=== PATIENT | male | born 1960 | race Caucasian/White ===

== ENCOUNTER 2024-11-14 08:04 | Outpatient (REF) | payer MEDICARE, SELFPAY ==
[2024-11-14 08:37] LABS: MANUAL DIFF FLAG NO
[2024-11-14 09:04] LABS: Basophils Percent Auto 0.5 % (0-2); Eosinophils Absolute Auto 0.2 X10*3/uL (0.0-0.4); Eosinophils Percent Auto 1.8 % (0-4); Hematocrit 44.5 % (42.0-52.0); Hemoglobin 15.3 g/dl (14.0-18.0); Imm Gran Abs Auto 0.02 X10*3/uL (0.00-0.03); Imm Gran Pct Auto 0.2 % (0.0-0.4); Lymphocytes Absolute Auto 3.6 X10*3/uL (1.2-4.9); Lymphocytes Percent Auto 42.5 % (20-40); Mean Corpuscular HGB Conc 34.4 g/dl (31.0-36.0); Mean Corpuscular Hemoglobin 29.4 pg (27.0-33.0); Mean Corpuscular Volume 85.4 fL (80.0-98.0); Mean Platelet Volume 10.1 fL (9.4-12.4); Monocytes Absolute Auto 1.1 X10*3/uL (0.1-1.2); Monocytes Percent Auto 12.8 % (2-11); Neutrophils Absolute Auto 3.6 x10*3/uL (2.0-8.3); Neutrophils Percent Auto 42.2 % (45-73); Platelet Count 183 X10*3/uL (160-400); Red Blood Count 5.21 X10*6/uL (4.60-5.80); Red Cell Distribution Width 13.5 % (11.0-16.0); White Blood Count 8.5 X10*3/uL (4.8-10.8)
[2024-11-14 09:35] LABS: Alanine Aminotransferase 49 U/L (0-40); Albumin Level 4.2 g/dL (3.5-5.0); Alkaline Phosphatase 106 U/L (39-117); Anion Gap 8 (12-20); Aspartate Amino Transferase 41 U/L (5-37); Bilirubin Total 0.9 mg/dL (0.0-1.0); Blood Urea Nitrogen 16 mg/dL (9-16); Calcium 9.7 mg/dL (8.4-10.2); Carbon Dioxide 27 mmol/L (22-29); Chloride 107 mmol/L (96-108); Estimated Glomerular Filt Rate > 60; Glucose Random 110 mg/dL (60-115); Lipase 14 U/L (8-78); Potassium 4.3 mmol/L (3.3-5.1); Sodium 138 mmol/L (135-145); Total Protein 7.8 g/dL (6.5-8.0)
[2024-11-14 09:45] LABS: PSA,Total (Free>4and<10) 1.28 ng/mL (0.00-4.00)
== END 2024-11-14 08:05 | disposition home or self-care (01) ==
LOC: HO.LAB 08:04
PROVIDERS: PCP Internal Medicine; Visit Provider Internal Medicine
DX: N40.1 Benign prostatic hyperplasia with lower urinary tract symptoms (principal); R10.30 Lower abdominal pain, unspecified; Z12.5 Encounter for screening for malignant neoplasm of prostate
CPT/HCPCS: 36415; 80053; 83690; 84153; 85025; 86140

== ENCOUNTER 2025-04-01 10:44 | Outpatient (REF) | payer MEDICARE, SELFPAY ==
[2025-04-01 11:05] LABS: Hematocrit 46.2 % (42.0-52.0); Hemoglobin 15.6 g/dl (14.0-18.0); Mean Corpuscular HGB Conc 33.8 g/dl (31.0-36.0); Mean Corpuscular Hemoglobin 29.2 pg (27.0-33.0); Mean Corpuscular Volume 86.5 fL (80.0-98.0); Mean Platelet Volume 10.1 fL (9.4-12.4); Platelet Count 166 X10*3/uL (160-400); Red Blood Count 5.34 X10*6/uL (4.60-5.80); Red Cell Distribution Width 13.2 % (11.0-16.0); White Blood Count 8.4 X10*3/uL (4.8-10.8)
--- OUTSIDE RECORDS SUMMARY | 2025-04-01 11:50 | XMS_ITS | Clinical Summary ---
Author Organization [facility] Address [address] [place] [address] Phone Care Team Providers Care Family Day Care Provider Name Role Phone Cornelio Schmitt MD Primary Care Provider +1- [phone] Allergies No known active allergies Social History Tobacco Use Types Packs/Day Years Used Date Smoking Tobacco: Never Assessed Sex and Gender Information Value Date Recorded Sex Assigned at Male 11/14/2024 1:17 PM EST Legal Sex Male 9:50 PM EST Gender Identity Male 11/14/2024 1:17 PM EST Sexual Orientation Straight 11/14/2024 1: 17 PM EST Plan of Treatment Health Maintenance Due Date Last Done Comments Zoster Vaccines (1 of 2) 2008 Pneumococcal Vaccine: 50+ Years (2 of 2 - PPSV23) 07/17/2011 07/17/2010, 07/11/2009 DTaP,Tdap,and Td Vaccines (4 - Td or Tdap) 07/17/2020 07/17/2010, 09/19/2009, 07/11/2009 Cholesterol Screening (Lipid Panel) 10/13/2022 Colorectal Cancer Screening: Colonoscopy 10/13/2022 Depression Screening 10/13/2022 Hepatitis C Screening 10/13/2022 Medicare Annual Wellness Visit 10/13/2022 Social Influencers of Health Screening 10/13/2022 Falls Risk Assessment 2023 COVID-19 Vaccine ( season) 2024 Influenza Vaccine (Season Ended) 2025 09/10/2020, 09/14/2019, 09/02/2018, Additional history exists RSV Immunization Adult Patients (1 - 1-dose 75+ series) 2033 Meningococcal ACWY Vaccine Aged Out 07/11/2009 N o longer eligible based on patient's age to complete this topic HIB Vaccines Aged Out 07/17/2010, 09/01, 07/11/2009 No longer eligible based on patient's age to complete this topic MMR Vaccines Aged Out 07/17/2010 No longer eligi ble based on patient's age to complete this topic HPV Vaccines Aged Out No longer eligi ble based on patient's age to complete this topic Hepatitis A Vaccines Aged Out No long er eligible based on patient's age to complete this topic Hepatitis B Vaccines Aged Out No long er eligible based on patient's age to complete this topic IPV Vaccines Aged Out No longer eligi ble based on patient's age to complete this topic Meningococcal B Vaccine Aged Out No l onger eligible based on patient's age to complete this topic RSV Immunization Patients Under 20 months Aged Out No longer eligible based on patient's age to complete this topic Varicella Vaccines Aged Out No longer eligible based on patient's age to complete this topic Insurance MEDICARE [facility] Care Teams Family Day Care Provider Relationship Specialty Start Date End Date Cornelio Schmitt MD [address] [place] [phone] PCP - General Internal Medicine 11/14/24
[2025-04-01 11:56] LABS: Alanine Aminotransferase 39 U/L (0-40); Albumin Level 4.3 g/dL (3.5-5.0); Alkaline Phosphatase 114 U/L (39-117); Anion Gap 8 (12-20); Aspartate Amino Transferase 36 U/L (5-37); Bilirubin Total 0.8 mg/dL (0.0-1.0); Blood Urea Nitrogen 17 mg/dL (9-16); Calcium 9.7 mg/dL (8.4-10.2); Carbon Dioxide 29 mmol/L (22-29); Chloride 105 mmol/L (96-108); Cholesterol 118 mg/dL (<200); Estimated Glomerular Filt Rate > 60; Glucose Random 110 mg/dL (60-115); HDL Cholesterol 32 mg/dL (>40); LDL Cholesterol Calculated 59 mg/dL (<100); Potassium 4.3 mmol/L (3.3-5.1); Sodium 138 mmol/L (135-145); Total Protein 7.6 g/dL (6.5-8.0); Triglycerides 135 mg/dL (<150)
[2025-04-02 13:43] LABS: Free Prostate Spec Ag 0.5 ng/mL; Percent Free Prostate Spec Ag 45 % (calc) (>25); Prostate Specific Ag Total 1.1 ng/mL (< OR = 4.0)
== END 2025-04-01 10:45 | disposition home or self-care (01) ==
LOC: HO.LAB 10:44
PROVIDERS: PCP Internal Medicine; Visit Provider Internal Medicine
DX: I25.10 Atherosclerotic heart disease of native coronary artery without angina pectoris (principal)
CPT/HCPCS: 36415; 80053; 80061; 84154; 85027

== ENCOUNTER 2025-08-20 08:30 | Outpatient (REF) | payer MEDICARE, SELFPAY ==
--- NOTE | ~2025-08-20 | XR_ITS ---
EXAMINATION: XR ANKLE, RIGHT CLINICAL INFORMATION: M25.579 - Pain in unspecified ankle and joints of unspecified foot COMPARISON: August 11, 2025. TECHNIQUE: AP, lateral, and mortise views of the right ankle. FINDINGS: There is minimal callus formation in the comminuted fracture distal diaphysis/metaphysis, right femur and lateral malleolus. Mild soft tissue edema/contusion, lateral malleolus. No subcutaneous emphysema. Medial malleolus is intact. XR/XR ankle RT min 3V IMPRESSION: No gross healing, comminuted fracture lateral malleolus and distal metaphysis/diaphysis right fibula. Electronically signed by: Jacky Moctezuma MD 08/20/2025 10:28 AM EDT
== END 2025-08-20 08:31 | disposition home or self-care (01) ==
LOC: HO.HOSX 08:30
PROVIDERS: Visit Provider Physician Assistant
DX: S82.831D Other fracture of upper and lower end of right fibula, subsequent encounter for closed fracture with routine healing (principal); M25.571 Pain in right ankle and joints of right foot; W10.9XXD Fall (on) (from) unspecified stairs and steps, subsequent encounter
CPT/HCPCS: 73610; 99202

== ENCOUNTER 2025-08-20 10:12 | Outpatient (AMB) | payer MEDICARE, SELFPAY ==
--- NOTE | 2025-08-20 10:28 | MHC.OFFVIS ---
Vital Signs 08/20/25 10:34 Height 6 ft Weight 258 lb BMI 35.0 Handedness Right Intake Visit Reasons: RT non displaced fibula fracture DOI 08/11/25 Intake Note: Riky is a 64 year old male who presents today for a evaluation of his right ankle fracture, DOI 08/12/25. Patient reports he was coming downt the stairs and he fell from the last step. Patient notices his pain is worse with wearing his boot. Patient has mild pain without the boot and icing and taking Alive. Allergies clindamycin Allergy (Verified 08/20/25 10:32) Rash sulfamethoxazole (From Bactrim) Allergy (Verified 08/20/25 10:32) Rash trimethoprim (From Bactrim) Allergy (Verified 08/20/25 10:32) Rash HPI HPI RT non displaced fibula fracture DOI 08/11/25: Details: Mr. Coronado is a 64-year-old male who presents to the office today for evaluation of a right ankle injury that he sustained on 08/11/2025. He states that he was walking down a set of stairs and missed the last step. He sustained an inversion injury and fell pain. He was seen at an urgent care and x-rays were obtained. He was instructed he had a distal fibular fracture was placed into a tall walking boot. He was then referred to Orthopedics outpatient for further evaluation and treatment. [facility] Social History (Updated 08/20/25 @ 10:34 by Valentin Bello) Alcohol intake: never Patient Tobacco Use Status: Never used Tobacco Current occupational status: retired Current occupation: right hand dominant Review of Systems Const All systems reviewed & are unremarkable except as noted in HPI and below Physical Exam Vital Signs: BMI result Body Mass Index 35.0 Const General: cooperative, healthy appearing and no acute distress Resp Effort & Inspection: normal respiratory effort and able to speak in complete sentences Extrem Other: Right ankle: Mild to moderate edema along the lateral malleolus accompanied by tenderness to palpation. Patient is able to demonstrate dorsiflexion, plantar flexion, pronation and supination with mild discomfort.. Negative anterior drawer. Sensation intact. Pedal Pulse intact. Psych Appearance: grossly normal Mental Status: mental status grossly normal Attitude: cooperative Office Procedures AMB Fracture Care Fracture Billing Code: Fracture Billing Code Assessment & Plan Assessment & Plan (1) Closed fracture of right distal fibula: Code(s): S82.831A - Other fracture of upper and lower end of right fibula, initial encounter for closed fracture Category: Medical Plan Mr. Coronado is a 64-year-old male who presents to the office today for evaluation of a right ankle injury that he sustained on 08/11/2025. He states that he was walking down a set of stairs and missed the last step. He sustained an inversion injury and fell pain. He was seen at an urgent care and x-rays were obtained. He was instructed he had a distal fibular fracture was placed into a tall walking boot. He was then referred to Orthopedics outpatient for further evaluation and treatment. While in the office today repeat x-rays were obtained as the patient has been weight-bearing in the tall walking boot. X-rays in the office today redemonstrate distal fibular fracture with no disruption of the ankle mortise. Patient is tall walking boot that was provided to him by the urgent care is ill fitting and too small. This is causing pain for him along the fracture site. He was given a new tall walking boot fit appropriately while in the office today. He will continue weight-bearing as tolerated. I also placed an order for physical therapy in which he will attend an outside facility closer to home for gait training in the boot and range of motion. He will remain in the boot until I see him back in 4 weeks with repeat x-rays, sooner if needed. Of note, the patient is quite active with tennis and pickleball he will likely require a lace-up ankle brace at the next appointment. Orders: Orders PT Evaluation and Treatment Today S82.831A - Other fracture of upper and lower end of right fibula, initial encounter for closed fracture XR ankle RT min 3V Today M25.579 - Pain in unspecified ankle and joints of unspecified foot Coding Level of Care Code New Pt Level 4 (92024) Diagnoses Closed fracture of right distal fibula S82.831A CPT Codes Fracture Care - Fracture Billing Code: Fracture Billing Code ([id number])
[2025-08-20 10:34] VITALS: BMI 35.0
--- OUTSIDE RECORDS SUMMARY | 2025-08-20 12:00 | XMS_ITS | Patient Health Record ---
Author Organization [facility] Dianayaya Gregorioley Address [address] [facility] [place] [address] Care Team Providers Care Abrasive Water Jet Cutter Operator Name Role Phone Cornelio Schmitt MD Primary Care Provider Oscar Chaparro Unavailable [phone] Allergies Allergen (clinical drug ingredient) Drug/Non Drug Allergy documented on EMR Reaction Allergy Type Onset Date Status sulfamethoxazole / trimethoprim Bactrim Unknown Drug Allergy Active clindamycin Clindamycin HCl Unknown Drug Allergy Active Reason For Referral No Information Medications Medication SIG (Take, Route, Frequency, Duration) Notes Start Date End Date Status Lisinopril 5 MG as directed Orally O nce a day Active Vitamin D Active Ciclopirox Olamine 0.77 % 1 application to affected area Externally Twice a day to effected areas on feet; Duration: 30 days 05/28/2025 Active Atorvastatin Calcium 40 MG 1 tablet Oral ly Once a day Active Immunizations Vaccine Route Administration Date Status Comme nts Influenza Unknown 10/13/2021 Refused Influenza Unknown 05/28/2025 Refused COVID-19 Yony & Yony/Lis Unknown 10/13/2021 R efused Social History Tobacco Use: Social History Observation Description Date Details (start date - stop date) Never Smoker NA - NA Tobacco use other than smoking: Question Answer Notes Are you an other tobacco user? No Tobacco Control (Standard) Question Answer Notes Tobacco use: Nonsmoker Additional Findings: Tobacco non-user Current no nsmoker AUDIT-C (Standard) Question Answer Notes Did you have a drink containing alcohol in the p ast year? No Points 0 Interpretation Negative Problems Problem Type SNOMED Code ICD Code Onset Dates Problem Status W/U Status Risk Notes Problem Onychomycosis (907516873) Onychomycosis (B35.1) Active confirmed Vital Signs Blood pressure diastolic 65 mm Hg 05/28/2025 Height 3ej31vv in 05/28/2025 Blood pressure systolic 128 mm Hg 05/28/2025 Weight 260 lbs 05/28/2025 BMI 36.26 kg/m2 05/28/2025 Procedures Procedure Date Ordered Date Performed Result Body Sit e 83048-MPMPPUF NAIL, 6 OR MORE 11/16/2024 N/A 82798-CRFLDHQ NAIL, 6 OR MORE 02/22/2025 N/A 85808-[id number] NAIL, 6 OR MORE 05/28/2025 N/A Encounters Encounter Location Date Provider Diagnosis [address] [address] 11/16/2024 Oscar Shubham Pain in right toe(s) M79.674 ; Onychomycosis B35.1 and Pain in left toe(s) M79.[address] [address] 02/22/2025 Oscar Shubham Pain in right toe(s) M79.674 ; Onychomycosis B35.1 and Pain in left toe(s) M79.[address] [address] 05/28/2025 Oscar Shubham Pain in right toe(s) M79.674 ; Onychomycosis B35.1 ; Pain in left toe(s) M79.675 and Tinea pedis of both feet B35.3 Assessments Encounter Date Diagnosis (ICD Code) Assessment Notes Treatment Notes Treatment Clinical Notes Section Notes 11/16/2024 Pain in right toe(s) (ICD-10 - M79.674) 02/22/2025 Pain in right toe(s) (ICD-10 - M79.674) 05/28/2025 Pain in right toe(s) (ICD-10 - M79.674) 05/28/2025 Onychomycosis (ICD-10 - B35.1) 02/22/2025 Onychomycosis (ICD-10 - B35.1) 11/16/2024 Onychomycosis (ICD-10 - B35.1) 02/22/2025 Pain in left toe(s) (ICD-10 - M79.675) 11/16/2024 Pain in left toe(s) (ICD-10 - M79.675) 05/28/2025 Pain in left toe(s) (ICD-10 - M79.675) 05/28/2025 Tinea pedis of both feet (ICD-10 - B35.3) Patient Educated with: ATHELETE .pdf (ATHELETE .pdf) Plan Of Treatment Pending Test Test Name Order Date [id number] NAIL, 6 OR MORE 11/01/2023 [id number] NAIL, 6 OR MORE 02/10/2024 [id number] NAIL, 6 OR MORE 05/11/2024 [id number] NAIL, 6 OR MORE 08/17/2024 [id number] NAIL, 6 OR MORE 11/16/2024 [id number] NAIL, 6 OR MORE 02/22/2025 [id number] NAIL, 6 OR MORE 05/28/2025 [id number] Plate 08/17/2024 Next Appt Details Provider Name:Oscar Jalloh , 09/13/2025 08:45:00 AM, [address] [facility], [place], [address], Insurance Providers Payer Name Payer Address Payer Phone Subscriber Number Group Number Insured Name Patient Relationship to Insured Coverage Start Date Coverage End Date Medicare National Govt S[employer] [address] [place] [address] [id number] Riky Coronado Self - patient is the insured [employer] [address] [place] [address] [id number] Coronado Riky Self - patient is the insured Medical (General) History Medical History History ICD Code Arthritis Cancer - Lymphoma High blood pressure Neuropathy from Chemo Chicken pox Surgical History Surgery Date(Month/Year) cancer surgery- Stem cell transplant colonoscopy
== END 2025-08-20 11:10 | disposition home or self-care (01) ==
LOC: HO.HOS 10:13
PROVIDERS: PCP Internal Medicine; Visit Provider Physician Assistant
DX: S82.831A Other fracture of upper and lower end of right fibula, initial encounter for closed fracture (principal)
CPT/HCPCS: 99203

== ENCOUNTER → 2025-08-20 10:16 | Outpatient (BNV) | payer MEDICARE, SELFPAY | PROVIDERS: Visit Provider Radiology Diagnostic Radiology | DX: S82.61XA Displaced fracture of lateral malleolus of right fibula, initial encounter for closed fracture (principal); S82.831A Other fracture of upper and lower end of right fibula, initial encounter for closed fracture | CPT/HCPCS: 73610 ==

== ENCOUNTER 2025-09-19 09:12 | Outpatient (REF) | payer MEDICARE, SELFPAY ==
--- OUTSIDE RECORDS SUMMARY | 2025-09-13 03:45 | XMS_ITS ---
Author Organization [facility] marie Slater Address [address] [place] [address] Care Team Providers Care Landscape Artist Name Role Phone Oskar BLOOD, Cornelio Primary Care Provider UnaOscar Betancourt Unavailable [phone] Encounters Encounter Location Date Provider Diagnosis [address] [address] 09/13/2025 Oscar Jalloh Plan Of Treatment Next Appt Details Provider Name:Oscar Jalloh , 12/13/2025 08:45:00 AM, [address] [place] [address], [phone], Progress Notes * Riky SALES PDOB:[birth year] (64 yo M)Acc No.[id number]:09/13/2025 Progress Note Patient: Riky BENNETT Provider: Jb Jalloh DPM :1960 A ge:64 Y S ex:Male Date:09/13/2025 Address:[address] [place] [address] Pcp:Cornelio Schmitt MD Subjective: * Chief Complaints: * * Medical History: Objective: * Vitals: Assessment: Plan: * Treatment: * Images: * The named appointment provid er may or may not be the originator of this progress note, and it is not deemed complete until electronically signed by the appointment provider. Sign off status: Pending * Provider: Jb Jalloh DPM Date: 11/13/2024 Generated for Jose Alberto hansen/Harini/Regine on: 11/20/2024 09:35 AM EST
--- NOTE | ~2025-09-19 | XR_ITS ---
EXAMINATION: XR ANKLE, RIGHT CLINICAL INFORMATION: M25.579 - Pain in unspecified ankle and joints of unspecified foot COMPARISON: August 20, 2025 TECHNIQUE: AP, lateral, and mortise views of the right ankle. FINDINGS: Persistent 2 mm gap between fragments of the fracture distal diaphysis metaphysis of the fibula without overt callus formation or periosteal bone formation. XR/XR ankle RT min 3V IMPRESSION: Non healing fracture Electronically signed by: Jacky Moctezuma MD 09/19/2025 01:16 PM [facility]
--- OUTSIDE RECORDS SUMMARY | 2025-09-20 09:35 | XMS_ITS | Patient Health Record ---
Author Organization [facility] Dianayaya Gregorioley Address [address] [place] [address] Care Team Providers Care Rod Welder Name Role Phone Cornelio Schmitt MD Primary Care Provider Oscar Chaparro Unavailable [phone] Allergies Allergen (clinical drug ingredient) Drug/Non Drug [...] Status W/U Status Risk Notes Problem Onychomycosis (379315151) Onychomycosis (B35.1) Active confirmed Vital Signs Blood pressure diastolic 65 mm Hg 05/28/2025 Height 0oy48ah in 05/28/2025 Blood pressure systolic 128 mm Hg 05/28/2025 Weight 260 lbs 05/28/2025 BMI 36.26 kg/m2 05/28/2025 Procedures Procedure Date Ordered Date Performed Result Body Sit e 80939-[id number] NAIL, 6 OR MORE 11/16/2024 N/A [id number] NAIL, 6 OR MORE 02/22/2025 N/A [id number] NAIL, 6 OR MORE 05/28/2025 N/A Encounters Encounter Location Date Provider Diagnosis [address] [address] 11/16/2024 Oscar Shubham Pain in right toe(s) M79.674 ; Onychomycosis B35.1 and Pain in left toe(s) M79.[address] [address] 02/22/2025 Oscar Shubham Pain in right toe(s) M79.674 ; Onychomycosis B35.1 and Pain in left toe(s) M79.[address] [address] 05/28/2025 Oscar Shubham Pain in right toe(s) M79.674 ; Onychomycosis B35.1 ; Pain in left toe(s) M79.675 and Tinea pedis of both feet B35.[address] [address] 09/02/2025 Oscar Shubham Assessments Encounter Date Diagnosis (ICD Code) Assessment [...] Treatment Pending Test Test Name Order Date [id number] NAIL, 6 OR MORE 11/01/2023 [id number] NAIL, 6 OR MORE 02/10/2024 [id number] NAIL, 6 OR MORE 05/11/2024 [id number] NAIL, 6 OR MORE 08/17/2024 [id number] NAIL, 6 OR MORE 11/16/2024 [id number] NAIL, 6 OR MORE 02/22/2025 [id number] NAIL, 6 OR MORE 05/28/2025 [id number] Plate 08/17/2024 Next Appt Details Provider Name:Oscar Priya Jalloh , 12/13/2025 08:45:00 AM, [address] [place], [address], Insurance Providers Payer Name Payer Address Payer Phone Subscriber Number Group Number Insured Name Patient Relationship to Insured Coverage Start Date Coverage End Date Medicare National Govt [facility] [address] [place] [address] [id number] Riky Coronado Self - patient is the insured [employer] [address] [place] [address] [id number] Riky Coronado Self - patient is the insured Medical (General) History Medical History History ICD Code Arthritis Cancer - Lymphoma High blood pressure Neuropathy from Chemo Chicken pox Surgical History Surgery Date(Month/Year) cancer surgery- Stem cell transplant colonoscopy
--- OUTSIDE RECORDS SUMMARY | 2025-09-20 09:35 | XMS_ITS | Clinical Summary ---
Author Organization [facility] Address [address] [place] [address] Phone Care Team Providers Care Milling Supervisor Name Role Phone Cornelio Schmitt MD Primary Care Provider +1- [phone] Allergies No known active allergies Social History [...] Health Maintenance Due Date Last Done Comments Colorectal Cancer Screening: Colonoscopy 1960 Zoster Vaccines (1 of 2) 2008 Pneumococcal Vaccine: 50+ Years (2 of 2 - PCV20 or PCV21) 07/17/2011 07/17/2010, 07/11/2009 DTaP,Tdap,and Td Vaccines (4 - Td or Tdap) 07/17/2020 07/17/2010, 09/19/2009, 07/11/2009 Cholesterol Screening (Lipid Panel) 10/13/2022 Hepatitis C Screening 10/13/2022 Medicare Annual Wellness Visit 10/13/2022 Social Influencers of Health Screening 10/13/2022 Falls Risk Assessment 2023 Depression Screening 10/31/2024 COVID-19 Vaccine ( season) 2025 Influenza Vaccine (#1) 2025 0, 09/14/2019, 09/02/2018, Additional history exists RSV Immunization [...] age to complete this topic Insurance MEDICARE [facility] Care Teams Milling Supervisor Relationship Specialty Start Date End Date Cornelio Schmitt MD [address] [place] [phone] PCP - General Internal Medicine 11/14/24
== END 2025-09-19 09:13 | disposition home or self-care (01) ==
LOC: HO.HOSX 09:12
PROVIDERS: Visit Provider Physician Assistant
DX: Z47.89 Encounter for other orthopedic aftercare (principal); S82.831D Other fracture of upper and lower end of right fibula, subsequent encounter for closed fracture with routine healing; X58.XXXD Exposure to other specified factors, subsequent encounter
CPT/HCPCS: 73610; 99212

== ENCOUNTER 2025-09-19 12:54 | Outpatient (AMB) | payer MEDICARE, SELFPAY ==
--- NOTE | 2025-09-19 13:20 | MHC.OFFVIS ---
Intake Visit Reasons: RT non displaced fibula fracture DOI 08/11/25 Intake Note: Riky is a 64 year old male who presents today for a follow up of his right distal fibula fracture, DOI 08/12/25. At his last visit patient was placed in a tall walking boot. Patient reports he is doing good. He has been working with physical therapy and performing his exercises at home as well. Allergies clindamycin Allergy (Verified 09/19/25 13:27) Rash sulfamethoxazole (From Bactrim) Allergy (Verified 09/19/25 13:27) Rash trimethoprim (From Bactrim) Allergy (Verified 09/19/25 13:27) Rash HPI HPI RT non displaced fibula fracture DOI 08/11/25: Details: Mr. Coronado is a 64-year-old male who presents to the office today for routine follow-up of a right distal fibular fracture that occurred on 08/11/2025. Patient denies any pain. He has been using a tall walking boot to assist with ambulation and attending physical therapy. Overall he is doing well and is wishing to discontinue the boot as it is causing some irritation on the anterior aspect of the ankle. [facility] Social History Alcohol intake: never Patient Tobacco Use Status: Never used Tobacco Current occupational status: retired Current occupation: right hand dominant Review of Systems Const All systems reviewed & are unremarkable except as noted in HPI and below Physical Exam Const General: cooperative, healthy appearing and no acute distress Resp Effort & Inspection: normal respiratory effort and able to speak in complete sentences Extrem Other: Right ankle: Mild edema located on the lateral malleolus. No tenderness to palpation over the lateral malleolus at the fracture site. Patient is able to demonstrate dorsiflexion, plantar flexion, pronation and supination with no discomfort or aqiwo-ar-blsowl limitations. Negative anterior drawer. Sensation intact. Pedal Pulse intact. Psych Appearance: grossly normal Mental Status: mental status grossly normal Attitude: cooperative Assessment & Plan Assessment & Plan (1) Closed fracture of right distal fibula: Code(s): S82.831A - Other fracture of upper and lower end of right fibula, initial encounter for closed fracture Category: Medical Plan Mr. Coronado is a 64-year-old male who presents to the office today for routine follow-up of a right distal fibular fracture that occurred on 08/11/2025. Patient denies any pain. He has been using a tall walking boot to assist with ambulation and attending physical therapy. Overall he is doing well and is wishing to discontinue the boot as it is causing some irritation on the anterior aspect of the ankle. While the office today, I have recommended that the patient discontinue the tall walking boot as it is causing irritation along the anterior aspect of the ankle and the patient does not have any tenderness to deep palpation over the fracture site of the distal fibula. He will continue working with physical therapy. I gave him a lace-up ankle brace in which he will wear during activities. He will transition to a supportive walking sneaker as well. He will follow up in 6 weeks, sooner if needed. X-rays of the right ankle which were obtained while in the office today and were reviewed by me, Sunni Montero PA-C, revealed routine healing right distal fibular fracture. Orders: Orders XR ankle RT min 3V Today M25.579 - Pain in unspecified ankle and joints of unspecified foot Coding Level of Care Code Est Pt Level 3 (34067) Diagnoses Closed fracture of right distal fibula S82.831A
== END 2025-09-19 13:52 | disposition home or self-care (01) ==
LOC: HO.HOS 12:55
PROVIDERS: Visit Provider Physician Assistant
DX: S82.831A Other fracture of upper and lower end of right fibula, initial encounter for closed fracture (principal)
CPT/HCPCS: 99213

== ENCOUNTER → 2025-09-19 13:03 | Outpatient (BNV) | payer MEDICARE, SELFPAY | PROVIDERS: Visit Provider Radiology Diagnostic Radiology | DX: S82.891G Other fracture of right lower leg, subsequent encounter for closed fracture with delayed healing (principal) | CPT/HCPCS: 73610 ==

== ENCOUNTER 2025-09-24 10:44 | Outpatient (REF) | payer MEDICARE, SELFPAY ==
--- OUTSIDE RECORDS SUMMARY | 2025-09-13 03:45 | XMS_ITS ---
Author Organization [facility] marie Loyalhanna Address [address] [place] [address] Care Team Providers Care Pipe Caulker Name Role Phone Oskar BLOOD, Cornelio Primary Care Provider UnaOscar Betancourt Unavailable [phone] Encounters Encounter Location Date Provider Diagnosis [address] [address] 09/13/2025 Oscar Jalloh Plan Of Treatment Next Appt Details Provider Name:Oscar Jalloh , 12/13/2025 08:45:00 AM, [address] [place] [address], [phone], Progress Notes * Riky SALES PDOB:[birth year] (64 yo M)Acc No.[id number]:09/13/2025 Progress Note Patient: Riky BENNETT Provider: Jb Jalloh DPM :1960 A ge:64 Y S ex:Male Date:09/13/2025 Address:[address] [place] [address] Pcp:Cornelio Schmitt MD Subjective: * Chief Complaints: [...] 11/13/2024 Generated for Jose Alberto hansen/Harini/Regine on: 11/24/2024 01:52 PM EST
[2025-09-24 11:10] LABS: Hematocrit 45.7 % (42.0-52.0); Hemoglobin 14.9 g/dl (14.0-18.0); Mean Corpuscular HGB Conc 32.6 g/dl (31.0-36.0); Mean Corpuscular Hemoglobin 28.8 pg (27.0-33.0); Mean Corpuscular Volume 88.4 fL (80.0-98.0); NRBC Abs Auto 0.000 X10*3/uL (0.0-0.012); NRBC Pct Auto 0.0 /100WBC (0.0-0.2); Platelet Count 190 X10*3/uL (160-400); Red Blood Count 5.17 X10*6/uL (4.60-5.80); White Blood Count 9.5 X10*3/uL (4.8-10.8)
[2025-09-24 11:42] LABS: Alanine Aminotransferase 63 U/L (0-40); Albumin Level 4.3 g/dL (3.5-5.0); Alkaline Phosphatase 130 U/L (39-117); Anion Gap 10 (12-20); Aspartate Amino Transferase 39 U/L (5-37); Blood Urea Nitrogen 21 mg/dL (9-16); Calcium 9.4 mg/dL (8.4-10.2); Carbon Dioxide 27 mmol/L (22-29); Chloride 108 mmol/L (96-108); Cholesterol 112 mg/dL (<200); Estimated Glomerular Filt Rate 57; HDL Cholesterol 31 mg/dL (>40); Potassium 4.1 mmol/L (3.3-5.1); Sodium 141 mmol/L (135-145); Total Protein 7.4 g/dL (6.5-8.0); Triglycerides 125 mg/dL (<150)
[2025-09-24 12:04] LABS: Prostate Specific Antigen 1.23 ng/mL (<0.05-4.0)
--- OUTSIDE RECORDS SUMMARY | 2025-09-24 13:53 | XMS_ITS | Patient Health Record ---
Author Organization [facility] Dianayaya Gregorioley Address [address] [place] [address] Care Team Providers Care Crm Dynamics Developer Name Role Phone Cornelio Schmitt MD Primary Care Provider Oscar Chaparro Unavailable [phone] Allergies Allergen (clinical drug ingredient) Drug/Non Drug [...] Status W/U Status Risk Notes Problem Onychomycosis (131540382) Onychomycosis (B35.1) Active confirmed Vital Signs Blood pressure diastolic 65 mm Hg 05/28/2025 Height 6wn75sk in 05/28/2025 Blood pressure systolic 128 mm Hg 05/28/2025 Weight 260 lbs 05/28/2025 BMI 36.26 kg/m2 05/28/2025 Procedures Procedure Date Ordered Date Performed Result Body Sit e 37446-[id number] NAIL, 6 OR MORE 11/16/2024 N/A [id number] NAIL, 6 OR MORE 02/22/2025 N/A [id number] NAIL, 6 OR MORE 05/28/2025 N/A Encounters Encounter Location Date Provider Diagnosis [address] [address] 11/16/2024 Oscar Shubham Pain in right toe(s) M79.674 ; Onychomycosis B35.1 and Pain in left toe(s) M79.[address] [address] 02/22/2025 Oscar Shubham Pain in right toe(s) M79.674 ; Onychomycosis B35.1 and Pain in left toe(s) M79.[address] [address] 05/28/2025 Oscar Shubham Pain in right toe(s) M79.674 ; Onychomycosis B35.1 ; Pain in left toe(s) M79.675 and Tinea pedis of both feet B35.[address] [address] 09/02/2025 Oscar Shubham Assessments Encounter Date Diagnosis [...] Treatment Pending Test Test Name Order Date [id number] NAIL, 6 OR MORE 11/01/2023 [id number] NAIL, 6 OR MORE 02/10/2024 [id number] NAIL, 6 OR MORE 05/11/2024 [id number] NAIL, 6 OR MORE 08/17/2024 36827-VIUMCMM NAIL, 6 OR MORE 11/16/2024 [id number] NAIL, 6 OR MORE 02/22/2025 76259-JKUYEKF NAIL, 6 OR MORE 05/28/2025 [id number]-Ynekutuw Plate 08/17/2024 Next Appt Details Provider Name:Oscar Priya Jalloh , 12/13/2025 08:45:00 AM, [address] [place], [address], Insurance Providers Payer Name Payer Address Payer Phone Subscriber Number Group Number Insured Name Patient Relationship to Insured Coverage Start Date Coverage End Date Medicare National Govt [facility] [address] [facility] [place] [address] [id number] Riky Coronado Self - patient is the insured [employer] [address] [place] [address] [phone] [id number] Riky Coronado Self - patient is the insured Medical (General) History Medical History History ICD Code Arthritis Cancer - Lymphoma High blood pressure Neuropathy from Chemo Chicken pox Surgical History Surgery Date(Month/Year) cancer surgery- Stem cell transplant colonoscopy
--- OUTSIDE RECORDS SUMMARY | 2025-09-24 13:53 | XMS_ITS | Clinical Summary ---
Author Organization [facility] Address [address] [place] [address] Phone Care Team Providers Care Flooring Installer Name Role Phone Cornelio Schmitt MD Primary Care Provider [phone] Allergies No known active allergies Social History [...] MEDICARE [facility] Care Teams Flooring Installer Relationship Specialty Start Date End Date Cornelio Schmitt MD [address] [place] [phone] PCP - General Internal Medicine 11/14/24
== END 2025-09-24 10:45 | disposition home or self-care (01) ==
LOC: HO.LAB 10:44
PROVIDERS: PCP Internal Medicine; Visit Provider Internal Medicine
DX: I25.10 Atherosclerotic heart disease of native coronary artery without angina pectoris (principal); N52.9 Male erectile dysfunction, unspecified; Z12.5 Encounter for screening for malignant neoplasm of prostate
CPT/HCPCS: 36415; 80053; 80061; 84153; 85027